=== PATIENT | female | born 1960 | race Caucasian/White ===

== ENCOUNTER 2017-05-08 12:10 | Emergency (ER) | payer OTHER ==
[~2017-05-08] VITALS: Ht 165.1 cm; Wt 87.3 kg
[2017-05-08 14:24] LABS: HEMATOCRIT 38.3 % (36.0-46.0); MCH 27.9 PG (29.0-34.0); MCHC 32.4 G/DL (30.0-36.0); MCV 86.1 FL (83-99); MEAN PLAT.VOLUME 10.2 uM^3 (9.5-12.4); PLATELET COUNT 237 K/uL (156-360); RBC DIS.WIDTH-CV 13.4 % (11.8-14.6); RBC DIS.WIDTH-SD 41.8 % (39-53); RED BLOOD COUNT 4.45 M/uL (3.80-5.20); WHITE BLOOD COUNT 5.7 K/uL (4.1-10.2)
[2017-05-08 14:32] LABS: CHLORIDE 105 mEq/L (99-109); POTASSIUM 4.1 mEq/L (3.7-5.4); SODIUM 141 mEq/L (136-147)
[2017-05-08 14:34] LABS: GLUCOSE 96 mg/dL (70-99)
[2017-05-08 14:36] LABS: ANION GAP 10 MEQ/L (2-14)
[2017-05-08 14:38] LABS: GFR ESTIMATE (CALCULATED) > 59 mL/min/
[2017-05-08 14:39] LABS: UREA NITROGEN (BUN) 14 mg/dL (9-23)
[2017-05-08 14:44] LABS: TROP-I INTERPRETATION NEGATIVE; TROPONIN-I 0.02 ng/mL (0.0-0.30)
[2017-05-08 16:14] LABS: D-DIMER ELISA 0.53 mg/L FEU (< 0.57)
[2017-05-08 16:25] LABS: TROP-I INTERPRETATION NEGATIVE; TROPONIN-I < 0.01 ng/mL (0.0-0.30)
[2017-05-08 19:10] VITALS: BP 204/98
== END 2017-05-08 19:13 | disposition home or self-care (01) ==
LOC: EME 12:10
PROVIDERS: Physician Assistant Medical
DX: I10 Essential (primary) hypertension (principal); R07.9 Chest pain, unspecified; Z87.891 Personal history of nicotine dependence
CPT/HCPCS: 71020; 71275; 80048; 84484; 85027; 85379; 93005; 99281; 99285; J7030

== ENCOUNTER 2018-01-16 18:02 | Emergency (ER) | payer OTHER ==
[~2018-01-16] VITALS: Ht 165.1 cm; Wt 90.7 kg
[2018-01-16 18:06] VITALS: BP 143/102
[2018-01-16] MEDS ORDERED: NAPROSYN500 MG PO (20:10)
[2018-01-16] MEDS ORDERED: FLEXERIL10 MG PO (20:10)
== END 2018-01-16 20:42 | disposition home or self-care (01) ==
LOC: EME 18:02
DX: S46.912A Strain of unspecified muscle, fascia and tendon at shoulder and upper arm level, left arm, initial encounter (principal); S60.222A Contusion of left hand, initial encounter; W10.9XXA Fall (on) (from) unspecified stairs and steps, initial encounter; I10 Essential (primary) hypertension; J45.909 Unspecified asthma, uncomplicated
CPT/HCPCS: 73030; 99281; 99284